=== PATIENT | female | born 1940 | race Caucasian/White ===

== ENCOUNTER 2023-02-06 05:29 | Inpatient (IN) | payer OTHER, MEDICARE ==
[~2023-02-06] VITALS: Ht 165.1 cm; Wt 74.8 kg
[2023-02-06 06:15] VITALS: PULSE 63; RESP 16; O2SAT 100
[2023-02-06 07:40] VITALS: PULSE 60; RESP 16; O2SAT 95
[2023-02-06 07:49] LABS: Urine Bacteria NONE SEEN /hpf (None Seen); Urine Blood Negative /uL (Negative); Urine Clarity Clear (Clear); Urine Protein, UAD Negative (Negative); Urine Specific Gravity 1.006 (1.001-1.035); Urine Urobilinogen Normal (Negative); Urine WBC <1 /hpf (0 - 5)
[2023-02-06 07:51] LABS: Urine Color Straw (Yellow)
[2023-02-06 07:54] LABS: Basophils # (auto) 0 10 ^3/uL (0-0.2); Basophils % (auto) 0.4 % (0.0-2.0); Eosinophils # (auto) 0.1 10 ^3/uL (0-0.8); Eosinophils % (auto) 1.3 % (0.0-7.0); Hematocrit 34.7 % (36.0-46.0); Hemoglobin 11.6 g/dL (12.2-16.2); Lymphocytes # (auto) 1.7 10 ^3/uL (0.4-5.4); Lymphocytes % (auto) 15.8 % (10.0-50.0); Mean Corpuscular Hgb Conc. 33.5 g/dL (32.0-36.0); Mean Corpuscular Volume 92.5 fL (80.0-100.0); Monocytes # (auto) 0.9 10 ^3/uL (0-1.3); Monocytes % (auto) 8.6 % (0.0-12.0); Neutrophils # (auto) 7.9 10 ^3/uL (1.6-8.6); Neutrophils % (auto) 73.9 % (37.0-80.0); Red Blood Cells 3.75 10^6/uL (4.0-5.20); Red Cell Distribution Width 14.2 % (11.8-14.3); White Blood Cell 10.8 10^3/uL (4.4-10.8)
[2023-02-06 08:53] LABS: Alanine Aminotransferase 12 U/L (7-40); Albumin 3.8 g/dL (3.2-4.8); Alkaline Phosphatase 63 U/L (46-116); Anion Gap 4 (5-15); Aspartate Aminotransferase 20 U/L (13-40); BUN/Creatinine Ratio 16.7 (10.0-20.0); Blood Urea Nitrogen 15 mg/dL (9-23); Calcium 8.9 mg/dL (8.7-10.4); Carbon Dioxide 25 mmol/L (20-30); Chloride 105 mmol/L (98-107); Glucose 100 mg/dL (74-106); Potassium 4.2 mmol/L (3.5-5.1); Sodium 134 mmol/L (136-145)
[2023-02-06 08:54] LABS: Bilirubin, Total 0.5 mg/dL (0.2-1.0); Total Protein 6.3 g/dL (5.7-8.2)
[2023-02-06] MEDS ORDERED: LORA-1121 PO (09:16)
[2023-02-06] MEDS ORDERED: PRIM50TA5 PO (09:16)
[2023-02-06] MEDS ORDERED: CAR3125T PO (09:16)
[2023-02-06] MEDS ORDERED: CITA10TA8 PO (09:16)
[2023-02-06] MEDS ORDERED: BUSP5TAB51 PO (09:16)
[2023-02-06] MEDS ORDERED: FURO1TAB33 PO (09:16)
[2023-02-06] MEDS ORDERED: SACU1TAB PO (09:16)
[2023-02-06] MEDS ORDERED: QUET100T47 PO (09:16)
[2023-02-06] MEDS ORDERED: ASPI1TAB20 PO (09:16)
[2023-02-06] MEDS ORDERED: MIRT-94 PO (09:16)
[2023-02-06] MEDS ORDERED: POTA10TA51 PO (09:16)
[2023-02-06] MEDS ORDERED: DIGO0.12 PO (09:16)
[2023-02-06] MEDS ORDERED: CLON1TAB PO (09:16)
[2023-02-06] MEDS ORDERED: MECL1TAB32 PO (09:16)
[2023-02-06] MEDS ORDERED: SPIR25TA8 PO (09:16)
[2023-02-06] MEDS ORDERED: APIX5TAB PO (09:16)
[2023-02-06] MEDS ORDERED: BENZ100C97 PO (09:16)
[2023-02-06] MEDS ORDERED: ONDA-155 PO (09:16)
[2023-02-06] MEDS ORDERED: QUET50TA PO (09:16)
[2023-02-06] MEDS ORDERED: PRIMIDONE 50 MG TAB PO ONE (09:30)
[2023-02-06] MEDS ORDERED: MECLIZINE HCL 25 MG TAB PO ONE (09:30)
[2023-02-06] MEDS ORDERED: clonazePAM 0.5 MG TAB PO ONE (09:30)
[2023-02-06] MEDS ORDERED: busPIRone HCL 10 MG TAB PO ONE (09:30)
[2023-02-06] MEDS ORDERED: CITALOPRAM HYDROBR 20 MG TAB PO ONE (09:30)
[2023-02-06] MEDS ORDERED: QUEtiapine FUMARATE 100 MG TAB PO ONE (09:30)
[2023-02-06] MEDS ORDERED: LORazepam 0.5 MG TAB PO ONE (09:30)
[2023-02-06] MEDS ORDERED: MORPHINE SULFATE INJ 2 MG/ml SYRG IV PRN (12:45)
[2023-02-06] MEDS ORDERED: HYDROcodone-ACET 5/325MG TAB PO PRN (12:45)
[2023-02-06] MEDS ORDERED: ACETAMINOPHEN 325 MG TAB PO PRN (12:45)
[2023-02-06] MEDS ORDERED: ONDANSETRON HCL 4 MG/2 ML VIAL IV PRN (12:45)
[2023-02-06] MEDS ORDERED: DOCUSATE SOD 100 MG CAP PO PRN (12:45)
[2023-02-06 12:56] LABS: Platelet Estimate Decreased
[2023-02-06 12:59] LABS: Giant Platelets Few
[2023-02-06] MEDS: SODIUM CHLORIDE 0.9% 1,000 ML IV SCH ×2 (13:08→22:30)
[2023-02-06] MEDS ORDERED: LORazepam 0.5 MG TAB PO PRN (13:30)
[2023-02-06] MEDS ORDERED: PATIENTS OWN MEDICATION (Buspirone Hcl 5 MG) PO SCH (14:00)
[2023-02-06] MEDS ORDERED: CLONAZEPAM 1 MG PO SCH (14:00)
[2023-02-06] MEDS ORDERED: clonazePAM 0.5 MG TAB ONE (14:12)
[2023-02-06] MEDS ORDERED: busPIRone HCL 10 MG TAB ONE (14:12)
[2023-02-06 14:26] LABS: INR 1.11 (0.9-1.15); Partial Thromboplastin Time 29.1 SEC (24.5-34.5); Prothrombin Time 11.6 sec (9.3-11.8)
[2023-02-06 19:40] VITALS: RESP 16; O2SAT 97
[2023-02-06 21:30] VITALS: BP 117/59; PULSE 69; RESP 16; TEMP 98.2; O2SAT 96
[2023-02-06 22:00] VITALS: BP 117/117; PULSE 69; RESP 16; TEMP 98.2; O2SAT 96
[2023-02-06] MEDS: BENZONATATE 100 MG PO SCH (22:00)
[2023-02-06] MEDS ORDERED: QUEtiapine FUMARATE 100 MG TAB PO SCH (22:00)
[2023-02-06] MEDS ORDERED: PATIENTS OWN MEDICATION (Quetiapine Fumerate (Seroquel) 100 MG) PO SCH (22:00)
[2023-02-06] MEDS ORDERED: QUEtiapine FUMARATE 25 MG TAB PO SCH (22:00)
[2023-02-06] MEDS: MIRTAZAPINE 30 MG TAB PO SCH (23:06)
[2023-02-06] MEDS: SACUBITRIL-VALSARTAN 24mg/26mg TAB PO SCH (23:06)
[2023-02-06] MEDS: QUEtiapine FUMARATE 100 MG TAB PO SCH (23:07)
[2023-02-06] MEDS: CARVEDILOL 3.125 MG TAB PO SCH (23:07)
[2023-02-06] MEDS: PRIMIDONE 50 MG TAB PO SCH (23:07)
[2023-02-06] MEDS: clonazePAM 0.5 MG TAB PO SCH (23:30)
[2023-02-06] MEDS: busPIRone HCL 10 MG TAB PO SCH (23:30)
[2023-02-07 05:00] VITALS: BP 103/55; PULSE 62; RESP 18; TEMP 98; O2SAT 94
[2023-02-07] MEDS: SODIUM CHLORIDE 0.9% 1,000 ML IV SCH ×2 (05:25→17:02)
[2023-02-07] MEDS: busPIRone HCL 10 MG TAB PO SCH ×3 (05:47→20:13)
[2023-02-07] MEDS: clonazePAM 0.5 MG TAB PO SCH ×3 (05:48→20:10)
[2023-02-07 05:49] LABS: Basophils # (auto) 0 10 ^3/uL (0-0.2); Basophils % (auto) 0.7 % (0.0-2.0); Eosinophils # (auto) 0.1 10 ^3/uL (0-0.8); Eosinophils % (auto) 2.4 % (0.0-7.0); Hematocrit 29.5 % (36.0-46.0); Lymphocytes # (auto) 1.4 10 ^3/uL (0.4-5.4); Lymphocytes % (auto) 24.8 % (10.0-50.0); Mean Corpuscular Hemoglobin 31.3 pg (28.0-32.0); Mean Corpuscular Volume 91.9 fL (80.0-100.0); Monocytes # (auto) 0.7 10 ^3/uL (0-1.3); Monocytes % (auto) 12.6 % (0.0-12.0); Neutrophils # (auto) 3.5 10 ^3/uL (1.6-8.6); Neutrophils % (auto) 59.5 % (37.0-80.0); Nucleated Red Blood Cells % 0.1 %; Red Blood Cells 3.21 10^6/uL (4.0-5.20); Red Cell Distribution Width 14.5 % (11.8-14.3); White Blood Cell 5.8 10^3/uL (4.4-10.8)
[2023-02-07 06:06] LABS: Alanine Aminotransferase 12 U/L (7-40); Albumin 3.2 g/dL (3.2-4.8); Alkaline Phosphatase 49 U/L (46-116); Anion Gap 5 (5-15); Aspartate Aminotransferase 27 U/L (13-40); BUN/Creatinine Ratio 14.9 (10.0-20.0); Bilirubin, Total 0.6 mg/dL (0.2-1.0); Blood Urea Nitrogen 10 mg/dL (9-23); Calcium 8.3 mg/dL (8.5-10.1); Carbon Dioxide 22 mmol/L (20-30); Chloride 107 mmol/L (98-107); Glucose 90 mg/dL (74-106); Potassium 4.1 mmol/L (3.5-5.1); Sodium 134 mmol/L (136-145); Total Protein 5.4 g/dL (5.7-8.2)
[2023-02-07 08:00] VITALS: RESP 18
[2023-02-07 09:00] VITALS: BP 144/57; PULSE 57; RESP 16; TEMP 97.4; O2SAT 97
[2023-02-07] MEDS ORDERED: PATIENTS OWN MEDICATION (Citalopram Hydrobromide (Celexa) 20 MG) PO SCH (10:00)
[2023-02-07] MEDS ORDERED: PATIENTS OWN MEDICATION (Potassium Chloride (Potassium Chloride Cr) 10 MEQ) PO SCH (10:00)
[2023-02-07] MEDS: PRIMIDONE 50 MG TAB PO SCH ×2 (10:38→20:11)
[2023-02-07] MEDS: DIGOXIN 0.125 MG TAB PO SCH (10:38)
[2023-02-07] MEDS: SACUBITRIL-VALSARTAN 24mg/26mg TAB PO SCH ×2 (10:39→20:11)
[2023-02-07] MEDS: CARVEDILOL 3.125 MG TAB PO SCH ×2 (10:41→20:12)
[2023-02-07] MEDS: MECLIZINE HCL 25 MG TAB PO SCH (10:42)
[2023-02-07] MEDS: POTASSIUM CHL 10 Meq TABLET PO SCH (10:42)
[2023-02-07] MEDS: SPIRONOLACTONE 25 MG TAB PO SCH (10:42)
[2023-02-07] MEDS: QUEtiapine FUMARATE 100 MG TAB PO SCH ×2 (10:43→20:12)
[2023-02-07] MEDS: CITALOPRAM HYDROBR 20 MG TAB PO SCH (10:43)
[2023-02-07] MEDS: FUROSEMIDE 20 MG TAB PO SCH (10:43)
[2023-02-07 13:00] VITALS: BP 90/55; PULSE 58; RESP 14; TEMP 97.7; O2SAT 95
[2023-02-07 20:00] VITALS: BP 122/68; PULSE 68; RESP 18; TEMP 98; O2SAT 96
[2023-02-07] MEDS: MIRTAZAPINE 30 MG TAB PO SCH (20:11)
[2023-02-07] MEDS: BENZONATATE 100 MG PO SCH (22:00)
[2023-02-08] MEDS: SODIUM CHLORIDE 0.9% 1,000 ML IV SCH (03:55)
[2023-02-08] MEDS: clonazePAM 0.5 MG TAB PO SCH ×2 (04:20→14:37)
[2023-02-08] MEDS: busPIRone HCL 10 MG TAB PO SCH ×2 (04:21→14:36)
[2023-02-08 06:04] LABS: Basophils # (auto) 0 10 ^3/uL (0-0.2); Basophils % (auto) 0.6 % (0.0-2.0); Eosinophils # (auto) 0.1 10 ^3/uL (0-0.8); Hematocrit 30.3 % (36.0-46.0); Hemoglobin 10.2 g/dL (12.2-16.2); Lymphocytes # (auto) 1.2 10 ^3/uL (0.4-5.4); Lymphocytes % (auto) 16.8 % (10.0-50.0); Mean Corpuscular Hemoglobin 31.2 pg (28.0-32.0); Mean Corpuscular Hgb Conc. 33.8 g/dL (32.0-36.0); Mean Corpuscular Volume 92.2 fL (80.0-100.0); Monocytes # (auto) 0.8 10 ^3/uL (0-1.3); Monocytes % (auto) 10.8 % (0.0-12.0); Neutrophils # (auto) 4.9 10 ^3/uL (1.6-8.6); Neutrophils % (auto) 69.8 % (37.0-80.0); Nucleated Red Blood Cells % 0.1 %; Red Blood Cells 3.28 10^6/uL (4.0-5.20); Red Cell Distribution Width 14.5 % (11.8-14.3)
[2023-02-08 08:00] VITALS: BP 118/69; PULSE 67; RESP 16; TEMP 97; O2SAT 98
[2023-02-08 09:00] VITALS: BP 131/71; PULSE 81; RESP 18; O2SAT 92
[2023-02-08] MEDS: POTASSIUM CHL 10 Meq TABLET PO SCH (10:19)
[2023-02-08] MEDS: PRIMIDONE 50 MG TAB PO SCH (10:19)
[2023-02-08] MEDS: CARVEDILOL 3.125 MG TAB PO SCH (10:23)
[2023-02-08] MEDS: CITALOPRAM HYDROBR 20 MG TAB PO SCH (10:23)
[2023-02-08] MEDS: QUEtiapine FUMARATE 100 MG TAB PO SCH (10:24)
[2023-02-08] MEDS: FUROSEMIDE 20 MG TAB PO SCH (10:24)
[2023-02-08] MEDS: MECLIZINE HCL 25 MG TAB PO SCH (10:24)
[2023-02-08] MEDS: DIGOXIN 0.125 MG TAB PO SCH (10:25)
[2023-02-08] MEDS: SPIRONOLACTONE 25 MG TAB PO SCH (10:42)
[2023-02-08] MEDS: SACUBITRIL-VALSARTAN 24mg/26mg TAB PO SCH (10:42)
== END 2023-02-08 17:55 | DRG 604 ==
LOC: EDBD 05:29 → ER 05:29 → OVERFLOW 12:40 → EDBD 12:40 → WEST WING 21:29
PROVIDERS: ADMIT Nurse Practitioner Family; ATTEND Internal Medicine
DX: S80.02XA Contusion of left knee, initial encounter (principal); G93.41 Metabolic encephalopathy; F03.94 Unspecified dementia, unspecified severity, with anxiety; I50.22 Chronic systolic (congestive) heart failure; S70.01XA Contusion of right hip, initial encounter; R62.7 Adult failure to thrive; S30.0XXA Contusion of lower back and pelvis, initial encounter; D64.9 Anemia, unspecified; D69.6 Thrombocytopenia, unspecified; I11.0 Hypertensive heart disease with heart failure; I48.91 Unspecified atrial fibrillation; W18.39XA Other fall on same level, initial encounter; Z85.3 Personal history of malignant neoplasm of breast; Z95.2 Presence of prosthetic heart valve; Z95.810 Presence of automatic (implantable) cardiac defibrillator; Y93.89 Activity, other specified; Y92.89 Other specified places as the place of occurrence of the external cause; Y99.8 Other external cause status; Z68.27 Body mass index [BMI] 27.0-27.9, adult; Z90.49 Acquired absence of other specified parts of digestive tract
CPT/HCPCS: 36415; 72192; 73070; 73700; 80053; 80162; 81001; 83880; 84443; 85025; 85610; 85730; 93005; 93306; 97110; 97116; 97163; 97530; G0378